=== PATIENT | male | born 1985 | race Caucasian/White ===

== ENCOUNTER 2017-01-08 20:43 | Emergency (ER) | payer BC ==
[2017-01-08] MEDS ORDERED: KETOROLAC 30 MG/ML 1 ML VIAL IVP ONE (22:31)
[2017-01-08 22:53] LABS: Basophils # (A) 0.1 k/uL (0-0.2); Basophils % (A) 1 %; CH 33.7; CHCM 34.8; Eosinophils # (A) 0.3 k/uL (0-0.7); Eosinophils % (A) 5 %; HCT 41.1 % (39.0-53.0); HDW 2.35; HGB 13.7 gm/dL (13.0-17.5); Luc # (Auto) 0.18; Luc % (Auto) 3; Lymphocytes # (A) 2.8 k/uL (1.0-4.8); Lymphocytes % (A) 40 %; MCH 32.5 pg (25.0-35.0); MCHC 33.5 g/dL (31.0-37.0); MCV 97.2 fL (80.0-100.0); Mean Platelet Volume 7.7; Monocytes # (A) 0.4 k/uL (0-1.0); Monocytes % (A) 6 %; Neutrophils # (A) 3.2 k/uL (1.3-7.7); Neutrophils % (A) 46 %; RBC 4.23 m/uL (4.30-5.90); RDW 13.3 % (11.5-15.5); WBC 6.9 k/uL (3.8-10.6); WBC (Perox) 6.78
[2017-01-08 23:04] LABS: ALT 38 U/L (21-72); AST 26 U/L (17-59); Alkaline Phosphatase 62 U/L (38-126); Anion Gap 10 mmol/L; Blood Urea Nitrogen 11 mg/dL (9-20); Calcium 9.3 mg/dL (8.4-10.2); Carbon Dioxide 27 mmol/L (22-30); Chloride 103 mmol/L (98-107); Glucose 86 mg/dL (74-99); Magnesium 2.1 mg/dL (1.6-2.3); Non-African American GFR(MDRD) >60 (>60 ml/min/1.73 sqM); Potassium 3.9 mmol/L (3.5-5.1); Sodium 140 mmol/L (137-145); Total Bilirubin 0.2 mg/dL (0.2-1.3); Total Protein 7.3 g/dL (6.3-8.2)
--- NOTE | 2017-01-08 23:05 | XR ---
EXAM: XR Chest, 2 Views CLINICAL HISTORY: Reason: Chest Pain TECHNIQUE: Frontal and lateral views of the chest. COMPARISON: No relevant prior studies available. FINDINGS: Lungs: Lungs are clear Pleural space: No evidence of pleural effusion or pneumothorax. Heart: Heart size is within normal limits. Mediastinum: Mediastinal structures are unremarkable Bones/joints: Imaged bony thorax is unremarkable. IMPRESSION: No evidence of active chest disease.
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
[2017-01-09 00:10] VITALS: BP 108/70; PULSE 79; RESP 16; TEMP 97.9
== END 2017-01-09 00:09 | disposition home or self-care (01) ==
LOC: EC 20:43
DX: R07.89 Other chest pain (principal); F17.200 Nicotine dependence, unspecified, uncomplicated; Z88.0 Allergy status to penicillin
CPT/HCPCS: 99285; 96374; 36415; 93005; 80053; 83735; 84484; 85025; 71020; J1885

== ENCOUNTER 2018-02-25 07:00 | Inpatient (IN) | payer BC ==
--- NOTE | 2018-02-25 07:36 | ED ---
Psych HPI - General Chief Complaint: Psychiatric Symptoms Stated Complaint: mental health Time Seen by Provider: 02/25/18 07:12 Source: patient, police, RN notes reviewed, old records reviewed Mode of arrival: ambulatory - History of Present Illness Initial Comments: 32-year-old male present to return to the chief complaint of seeing people in his backyard today. He was petitioned by the [employer] . He called multiple times this evening at 3 AM stating that he heard people's backyard. He has video recordings of people however we are not able to see anybody on the video recordings. Patient reports he's never had this happen before. Denies any having history of psychiatric complaints. Patient is petitioned by a [employer] s Department due to seeing hearing things that are not there. Patient denies any other complaints including suicidal or homicidal ideations. - Related Data Home Medications Medication Instructions Recorded Confirmed No Known Home Medications 01/08/17 02/25/18 Allergies Allergy/AdvReac Type Severity Reaction Status Date / Time amoxicillin Allergy Rash/Hives Verified 02/25/18 13:26 Penicillins Allergy Rash/Hives Verified 02/25/18 13:26 Review of Systems ROS Statement: Those systems with pertinent positive or pertinent negative responses have been documented in the HPI. ROS Other: All systems not noted in ROS Statement are negative. Past Medical History Past Medical History: No Reported History History of Any Multi-Drug Resistant Organisms: None Reported Past Surgical History: Orthopedic Surgery Past Psychological History: No Psychological Hx Reported Smoking Status: Current every day smoker Past Alcohol Use History: Rare Past Drug Use History: None Reported General Exam - General Exam Comments Initial Comments: 32-year-old male. Alert and oriented. No significant distress. Limitations: no limitations General appearance: alert, in no apparent distress Head exam: Present: atraumatic, normocephalic, normal inspection Eye exam: Present: normal appearance, PERRL, EOMI. Absent: scleral icterus, conjunctival injection, periorbital swelling ENT exam: Present: normal exam, mucous membranes moist Neck exam: Present: normal inspection. Absent: tenderness, meningismus, lymphadenopathy Respiratory exam: Present: normal lung sounds bilaterally. Absent: respiratory distress, wheezes, rales, rhonchi, stridor Cardiovascular Exam: Present: regular rate, normal rhythm, normal heart sounds. Absent: systolic murmur, diastolic murmur, rubs, gallop, clicks Extremities exam: Present: normal inspection, full ROM, normal capillary refill. Absent: tenderness, pedal edema, joint swelling, calf tenderness Back exam: Present: normal inspection Neurological exam: Present: alert, oriented X3, CN II-XII intact Psychiatric exam: Present: normal mood, other (Delusions that people are after him and his backyard this morning.). Absent: normal affect (Patient is a normal affect. Questionable delusions of having people around his house and after him. The police officers did not see anything or no evidence on his the recordings.) Skin exam: Present: warm, dry, intact, normal color. Absent: rash Course Vital Signs 02/25/18 02/25/18 07:05 13:33 Temperature 97.1 F L 98.8 F Pulse Rate 97 74 Respiratory 18 18 Rate Blood Pressure 141/84 120/66 O2 Sat by Pulse 99 98 Oximetry Medical Decision Making - Medical Decision Making 32-year-old male with no past medical history including psychiatric she presents today with petition from [facility]. The Patient called police to his house multiple times today because people are in his backyard. Patient states that he has of the recording of people in backyard police did not see anyone, and there is no evidence of people on video recordings. I viewed the phone video , and I see No Evidence of Any People or Activity with That His Backyard. Patient at This Time Was Medically Clear for EPS Evaluation. Patient was advised by EPS 19th of the Patient should be admitted for these delusions of people backyard. Apparently patient's girlfriend was contacted and agreed that he was seeing and hearing things that were not there. Patient is willing to sign into the psychiatric facility on his own will. Disposition Clinical Impression: Delusion Disposition: ADMITTED IP TO THIS [facility] Condition: Stable Is patient prescribed a controlled substance at d/c from ED?: No Time of Disposition: 13:39
[2018-02-25] MEDS ORDERED: ZIPRASIDONE 20 MG VIAL IM PRN (13:22)
[2018-02-25] MEDS ORDERED: LORazepam 1 MG TAB PO PRN (13:22)
[2018-02-25] MEDS ORDERED: MAG HYDROX/AL HYDROX/SIMETH 30 ML CUP PO PRN (13:22)
[2018-02-25] MEDS ORDERED: MAGNESIUM HYDROXIDE 2,400 MG/10 ML CUP PO PRN (13:22)
[2018-02-25] MEDS ORDERED: ACETAMINOPHEN TAB 325 MG TAB PO PRN (13:22)
[2018-02-25] MEDS ORDERED: LORazepam 2 MG/ML INJ IM PRN (13:25)
--- NOTE | 2018-02-25 16:20 | P.CONS ---
History of Present Illness - Reason for Consult Medical clearance - History of Present Illness 32-year-old gentleman was admitted secondary to hallucinations. Patient denied any symptoms at this point of the patient denied dysuria nausea vomiting abdominal pain cough runny nose patient does smoke. Denied any suicidal or homicidal ideations. Review of Systems REVIEW OF SYSTEMS: CONSTITUTIONAL: No fever, no malaise, no fatigue. HEENT: No recent visual problems or hearing problems. Denied any sore throat. CARDIOVASCULAR: No chest pain, orthopnea, PND, no palpitations, no syncope. PULMONARY: No shortness of breath, no cough, no hemoptysis. GASTROINTESTINAL: No diarrhea, no nausea, no vomiting, no abdominal pain. Normoactive bowel sounds. NEUROLOGICAL: No headaches, no weakness, no numbness. HEMATOLOGICAL: Denies any bleeding or petechiae. GENITOURINARY: Denies any burning micturition, frequency, or urgency. MUSCULOSKELETAL/RHEUMATOLOGICAL: Denies any joint pain, swelling, or any muscle pain. ENDOCRINE: Denies any polyuria or polydipsia. The rest of the 14-point review of systems is negative. Past Medical History Past Medical History: No Reported History History of Any Multi-Drug Resistant Organisms: None Reported Past Surgical History: Orthopedic Surgery Additional Past Surgical History / Comment(s): R 5th digit Past Psychological History: No Psychological Hx Reported Smoking Status: Current every day smoker Past Alcohol Use History: Rare Additional Past Alcohol Use History / Comment(s): 1 drink every few months, sometimes none for 8 months Past Drug Use History: None Reported Medications and Allergies Home Medications Medication Instructions Recorded Confirmed Type No Known Home Medications 01/08/17 02/25/18 History Allergies Allergy/AdvReac Type Severity Reaction Status Date / Time amoxicillin Allergy Rash/Hives Verified 02/25/18 15:27 Penicillins Allergy Rash/Hives Verified 02/25/18 15:27 Physical Exam Vitals: Vital Signs Temp Pulse Pulse Resp BP BP Pulse Ox 02/25/18 14:52 97.4 F L 82 16 133/81 02/25/18 13:33 98.8 F 74 18 120/66 98 02/25/18 07:05 97.1 F L 97 18 141/84 99 Intake and Output 02/25/18 02/25/18 02/25/18 06:59 14:59 22:59 Other: Weight 74.843 kg PHYSICAL EXAMINATION: GENERAL: The patient is alert and oriented x3, not in any acute distress. Well developed, well nourished. HEENT: Pupils are round and equally reacting to light. EOMI. No scleral icterus. No conjunctival pallor. Normocephalic, atraumatic. No pharyngeal erythema. No thyromegaly. CARDIOVASCULAR: S1 and S2 present. No murmurs, rubs, or gallops. PULMONARY: Chest is clear to auscultation, no wheezing or crackles. ABDOMEN: Soft, nontender, nondistended, normoactive bowel sounds. No palpable organomegaly. MUSCULOSKELETAL: No joint swelling or deformity. EXTREMITIES: No cyanosis, clubbing, or pedal edema. NEUROLOGICAL: Gross neurological examination did not reveal any focal deficits. SKIN: No rashes. Assessment and Plan Plan: -Hallucinations: Possible schizophrenia management as per primary service -Nicotine abuse: Counseling was provided -Occasional marijuana use
[2018-02-26 09:10] VITALS: BMI 22.4
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
[2018-02-26 11:38] LABS: Basophils # (A) 0.1 k/uL (0-0.2); Basophils % (A) 2 %; Eosinophils # (A) 0.2 k/uL (0-0.7); Eosinophils % (A) 4 %; HCT 43.9 % (39.0-53.0); HGB 14.7 gm/dL (13.0-17.5); Lymphocytes # (A) 1.4 k/uL (1.0-4.8); Lymphocytes % (A) 29 %; MCH 31.2 pg (25.0-35.0); MCHC 33.4 g/dL (31.0-37.0); MCV 93.3 fL (80.0-100.0); Mean Platelet Volume 7.5; Monocytes # (A) 0.4 k/uL (0-1.0); Monocytes % (A) 8 %; Neutrophils # (A) 2.6 k/uL (1.3-7.7); Neutrophils % (A) 55 %; Platelet Count 217 k/uL (150-450); WBC 4.7 k/uL (3.8-10.6)
[2018-02-26 11:44] LABS: ALT 17 U/L (21-72); AST 26 U/L (17-59); Albumin 4.7 g/dL (3.5-5.0); Alkaline Phosphatase 35 U/L (38-126); Anion Gap 11 mmol/L; Blood Urea Nitrogen 12 mg/dL (9-20); Calcium 10.2 mg/dL (8.4-10.2); Carbon Dioxide 30 mmol/L (22-30); Chloride 103 mmol/L (98-107); Cholesterol 191 mg/dL (<200); Glucose 81 mg/dL (74-99); HDL Cholesterol 50 mg/dL (40-60); LDL Cholesterol,Calculated 130 mg/dL (0-99); Potassium 4.3 mmol/L (3.5-5.1); Sodium 144 mmol/L (137-145); Total Bilirubin 0.9 mg/dL (0.2-1.3); Total Protein 7.8 g/dL (6.3-8.2); Triglycerides 55 mg/dL (<150)
[2018-02-26 15:13] LABS: Appearance,Urine Clear (Clear); Bacteria,Urine Rare /hpf; Bilirubin,Urine Negative (Negative); Blood,Urine Small (Negative); Color,Urine Yellow; Glucose,Urine (UA) Negative (Negative); Ketones,Urine Negative (Negative); Leukocyte Esterase,Urine Negative (Negative); Mucus,Urine Few /hpf; Nitrite,Urine Negative (Negative); Protein,Urine Trace (Negative); RBC,Urine 25 /hpf (0-5); Specific Gravity,Urine 1.022 (1.001-1.035); WBC,Urine 2 /hpf (0-5)
[2018-02-26 18:15] LABS: Amphetamine Screen,Urine Not Detected (NotDetected); Barbiturate Screen,Urine Not Detected (NotDetected); Benzodiazepines Screen,Urine Not Detected (NotDetected); Cocaine Screen,Urine Not Detected (NotDetected); Methadone Screen, Urine Not Detected (NotDetected); Opiate Screen,Urine Not Detected (NotDetected); Oxycodone Screen, Urine Not Detected (NotDetected); Phencyclidine Screen,Urine Not Detected (NotDetected); Tricyclic Antidepressant,Urine Not Detected (NotDetected); Urn Cannabinoid Scrn Detected (NotDetected)
[2018-02-26 19:21] LABS: Hemoglobin A1C 4.9 % (4.0-6.0)
--- NOTE | 2018-02-27 15:34 | P.PN ---
Subjective Progress Note Date: 02/27/18 Principal diagnosis: MDD with anxiety 32-year-old male present to return to the chief complaint of seeing people in his backyard today. He was petitioned by the [employer] . He called multiple times this evening at 3 AM stating that he heard people's backyard. He has video recordings of people however we are not able to see anybody on the video recordings. Patient reports he's never had this happen before. Denies any having history of psychiatric complaints. Patient is petitioned by a [employer] s Department due to seeing hearing things that are not there. Patient denies any other complaints including suicidal or homicidal ideation. 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 Mental Status Examination - General Appearance: [well groomed,casual] Speech/Language: [spontaneous, rapid] Attitude/Behavior: [cooperative] Mood: [euthymic] Affect: [full range, lively] Orientation: [time, person, place situation] Thought Content: [wnl] Risk Factors: [denies suicidal (ideations, plan), and/or Homicidal (ideations, plan), other] Perception: [wnl] Thought Processes: [goal-oriented] Concentration/Attention Span: [wnl] [Per observation and interview with the patient] Recent Memory: [wnl] [3 out of 3 in 3 minutes] Remote Memory: [wnl] [past events, as related history] Intelligence: [average] [based on history, based on vocabulary, syntax, grammar , and content] Judgement: [fair] [per patient's behavior/history of present illness] Insight: [fair] [understanding severity of illness/history of present illness] Justification for Inpatient Hospitalization - [Hallucinations, delusions, resulting in significant loss of functioning.] [Emotional or behavioral conditions and complications requiring 24 hour medical and nursing care.] [Need for special drug therapy, or other therapeutic program requiring continuous hospitalization.] [Failure of social functioning.] Plan:Justification for Inpatient Hospitalization - [Hallucinations, delusions, resulting in significant loss of functioning.] [Emotional or behavioral conditions and complications requiring 24 hour medical and nursing care.] [Need for special drug therapy, or other therapeutic program requiring continuous hospitalization.] [Failure of social functioning.] Start: Zoloft 25 mg po qhs Re-evaluate daily for stabilization Estmated length of stay 2 additional days Objective - Vital Signs Vital signs: Vital Signs Temp 97.6 F 02/27/18 06:51 Pulse 65 02/27/18 06:51 Resp 16 02/27/18 06:51 BP 110/59 02/27/18 06:51 Pulse Ox 98 02/25/18 13:33 Intake & Output 02/26/18 02/27/18 02/27/18 18:59 06:59 18:59 Weight 74.843 kg - Labs CBC & Chem 7: 02/26/18 10:34 02/26/18 10:34 Labs: Abnormal Lab Results - Last 24 Hours (Table) 02/26/18 02/26/18 Range/Units 14:49 14:51 Urine Protein Trace H (Negative) Urine Blood Small H (Negative) Urine RBC 25 H (0-5) /hpf Urine Bacteria Rare H (None) /hpf Urine Mucus Few H (None) /hpf U Marijuana (THC) Screen Detected H (NotDetected) Assessment and Plan Plan: Justification for Inpatient Hospitalization - [Hallucinations, delusions, resulting in significant loss of functioning.] [Emotional or behavioral conditions and complications requiring 24 hour medical and nursing care.] [Need for special drug therapy, or other therapeutic program requiring continuous hospitalization.] [Failure of social functioning.]
[2018-02-27] MEDS: SERTRALINE 25 MG TAB PO SCH (19:57)
[2018-02-28] MEDS: SERTRALINE 25 MG TAB PO SCH ×2 (09:34→20:05)
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
[2018-03-01 06:30] VITALS: RESP 14
--- NOTE | 2018-03-01 08:36 | P.PN ---
Subjective Progress Note Date: 03/01/18 Principal diagnosis: MDD with anxiety 32-year-old male present to return to the chief complaint of seeing people in his backyard today. He was petitioned by the [employer] . He called multiple times this evening at 3 AM stating that he heard people's backyard. He has video recordings of people however we are not able to see anybody on the video recordings. Patient reports he's never had this happen before. Denies any having history of psychiatric complaints. Patient is petitioned by a [employer] s Department due to seeing hearing things that are not there. Patient denies any other complaints including suicidal or homicidal ideation. 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 Mental Status Examination - General Appearance: [well groomed,casual] Speech/Language: [spontaneous, rapid] Attitude/Behavior: [cooperative] Mood: [euthymic] Affect: [full range, lively] Orientation: [time, person, place situation] Thought Content: [wnl] Risk Factors: [denies suicidal (ideations, plan), and/or Homicidal (ideations, plan), other] Perception: [wnl] Thought Processes: [goal-oriented] Concentration/Attention Span: [wnl] [Per observation and interview with the patient] Recent Memory: [wnl] [3 out of 3 in 3 minutes] Remote Memory: [wnl] [past events, as related history] Intelligence: [average] [based on history, based on vocabulary, syntax, grammar , and content] Judgement: [fair] [per patient's behavior/history of present illness] Insight: [fair] [understanding severity of illness/history of present illness] Justification for Inpatient Hospitalization - [Hallucinations, delusions, resulting in significant loss of functioning.] [Emotional or behavioral conditions and complications requiring 24 hour medical and nursing care.] [Need for special drug therapy, or other therapeutic program requiring continuous hospitalization.] [Failure of social functioning.] Plan:Justification for Inpatient Hospitalization - [Hallucinations, delusions, resulting in significant loss of functioning.] [Emotional or behavioral conditions and complications requiring 24 hour medical and nursing care.] [Need for special drug therapy, or other therapeutic program requiring continuous hospitalization.] [Failure of social functioning.] Start: Zoloft 37.5 mg po qhs Re-evaluate daily for stabilization Estmated length of stay 2 additional days Objective - Vital Signs Vital signs: Vital Signs Temp 97.9 F 03/01/18 06:02 Pulse 50 L 03/01/18 06:02 Resp 14 03/01/18 06:02 BP 90/54 03/01/18 06:02 Pulse Ox 98 02/25/18 13:33 - Labs CBC & Chem 7: 02/26/18 10:34 02/26/18 10:34
[2018-03-01] MEDS: SERTRALINE 25 MG TAB PO SCH (09:07)
[2018-03-01 19:41] LABS: Amphetamine Screen,Urine Detected (NotDetected); Barbiturate Screen,Urine Not Detected (NotDetected); Benzodiazepines Screen,Urine Not Detected (NotDetected); Cocaine Screen,Urine Not Detected (NotDetected); Methadone Screen, Urine Not Detected (NotDetected); Opiate Screen,Urine Not Detected (NotDetected); Oxycodone Screen, Urine Not Detected (NotDetected); Phencyclidine Screen,Urine Not Detected (NotDetected); Tricyclic Antidepressant,Urine Not Detected (NotDetected); Urn Cannabinoid Scrn Not Detected (NotDetected)
[2018-03-01] MEDS ORDERED: SERTRALINE 25 MG TAB PO SCH (20:00)
[2018-03-01] MEDS ORDERED: SERTRALINE 50 MG TAB PO SCH (21:00)
[2018-03-02 06:26] VITALS: BP 126/63; PULSE 70; TEMP 97.7
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
== END 2018-03-02 11:17 | disposition home or self-care (01) | DRG 885 ==
LOC: EC 07:00 → 3MHU 13:20
PROVIDERS: ADMIT Psychiatry & Neurology Psychiatry; ATTEND Psychiatry & Neurology Psychiatry
DX: F32.3 Major depressive disorder, single episode, severe with psychotic features (principal); F41.9 Anxiety disorder, unspecified; F17.210 Nicotine dependence, cigarettes, uncomplicated; Z88.0 Allergy status to penicillin; Z71.6 Tobacco abuse counseling
CPT/HCPCS: 80053; 80061; 80306; 81001; 82075; 83036; 84443; 85025; 99285

== ENCOUNTER 2021-01-23 17:55 | Emergency (ER) | payer BC ==
[2021-01-23 19:46] LABS: ALT 13 U/L (4-49); AST 25 U/L (17-59); African American GFR (CKD) >90 (>60 ml/min/1.73 sqM); Alkaline Phosphatase 44 U/L (38-126); Amylase 58 U/L (30-110); Anion Gap 10 mmol/L; Blood Urea Nitrogen 9 mg/dL (9-20); Carbon Dioxide 26 mmol/L (22-30); Chloride 104 mmol/L (98-107); Glucose 108 mg/dL (74-99); Lipase 26 U/L (23-300); Non-African American GFR(CKD) >90 (>60 ml/min/1.73 sqM); Potassium 4.4 mmol/L (3.5-5.1); Sodium 140 mmol/L (137-145); Total Bilirubin 0.4 mg/dL (0.2-1.3); Total Protein 7.4 g/dL (6.3-8.2)
--- NOTE | 2021-01-23 21:15 | ED ---
Abdominal Pain HPI - General Chief Complaint: Abdominal Pain Stated Complaint: side pain Time Seen by Provider: 01/23/21 20:46 Source: patient, RN notes reviewed Mode of arrival: ambulatory Limitations: no limitations - History of Present Illness Initial Comments: This a 35-year-old male presents emergency Department chief complaint of right flank pain. Patient states started earlier today after having a bowel movement but states that did not feel it was related. Patient states she had pain all way from his lower rib pain down into her lower abdomen. Patient came very nauseated, lightheaded from the pain. No chest pain or shortness of breath no dysuria no hematuria no constipation no diarrhea no other complaints. - Related Data Previous Rx's Medication Instructions Recorded Sertraline [Zoloft] 50 mg PO HS 30 Days #30 tab 03/02/18 Allergies Allergy/AdvReac Type Severity Reaction Status Date / Time amoxicillin Allergy Rash/Hives Verified 01/23/21 19:13 Penicillins Allergy Rash/Hives Verified 01/23/21 19:13 Review of Systems ROS Statement: Those systems with pertinent positive or pertinent negative responses have been documented in the HPI. ROS Other: All systems not noted in ROS Statement are negative. Past Medical History Past Medical History: No Reported History History of Any Multi-Drug Resistant Organisms: None Reported Past Surgical History: Orthopedic Surgery Additional Past Surgical History / Comment(s): R 5th digit Past Psychological History: No Psychological Hx Reported Smoking Status: Current every day smoker Past Alcohol Use History: Rare Past Drug Use History: Marijuana General Exam Limitations: no limitations General appearance: alert, in no apparent distress Head exam: Present: atraumatic, normocephalic, normal inspection Neck exam: Present: normal inspection, full ROM. Absent: tenderness, meningismus, lymphadenopathy Respiratory exam: Present: normal lung sounds bilaterally. Absent: respiratory distress, wheezes, rales, rhonchi, stridor Cardiovascular Exam: Present: regular rate, normal rhythm, normal heart sounds. Absent: systolic murmur, diastolic murmur, rubs, gallop, clicks GI/Abdominal exam: Present: soft, tenderness (Right lower quadrant), normal bowel sounds. Absent: distended, guarding, rebound, rigid Back exam: Present: CVA tenderness (R). Absent: CVA tenderness (L) Neurological exam: Present: alert, oriented X3, CN II-XII intact Course Vital Signs 01/23/21 01/23/21 19:09 21:35 Temperature 98 F Pulse Rate 80 71 Respiratory 18 20 Rate Blood Pressure 115/73 121/82 O2 Sat by Pulse 98 100 Oximetry Medical Decision Making - Medical Decision Making 35-year-old presented flank pain. Patient's pain initially resolved prior arrival patient's urine shows hematuria most likely passed kidney stone. - Lab Data Result diagrams: 01/23/21 21:29 01/23/21 19:26 Lab Results 01/23/21 01/23/21 01/23/21 Range/Units 19:26 21:29 21:29 WBC 12.7 H (3.8-10.6) k/uL RBC 4.53 (4.30-5.90) m/uL Hgb 14.6 (13.0-17.5) gm/dL Hct 43.5 (39.0-53.0) % MCV 96.1 (80.0-100.0) fL MCH 32.3 (25.0-35.0) pg MCHC 33.6 (31.0-37.0) g/dL RDW 13.4 (11.5-15.5) % Plt Count 245 (150-450) k/uL MPV 7.8 Neutrophils % 82 % Lymphocytes % 12 % Monocytes % 4 % Eosinophils % 1 % Basophils % 1 % Neutrophils # 10.4 H (1.3-7.7) k/uL Lymphocytes # 1.5 (1.0-4.8) k/uL Monocytes # 0.5 (0-1.0) k/uL Eosinophils # 0.1 (0-0.7) k/uL Basophils # 0.1 (0-0.2) k/uL Sodium 140 (137-145) mmol/L Potassium 4.4 (3.5-5.1) mmol/L Chloride 104 (98-107) mmol/L Carbon Dioxide 26 (22-30) mmol/L Anion Gap 10 mmol/L BUN 9 (9-20) mg/dL Creatinine 0.91 (0.66-1.25) mg/dL Est GFR (CKD-EPI)AfAm >90 (>60 ml/min/1.73 sqM) Est GFR (CKD-EPI)NonAf >90 (>60 ml/min/1.73 sqM) Glucose 108 H (74-99) mg/dL Calcium 10.0 (8.4-10.2) mg/dL Total Bilirubin 0.4 (0.2-1.3) mg/dL AST 25 (17-59) U/L ALT 13 (4-49) U/L Alkaline Phosphatase 44 (38-126) U/L Total Protein 7.4 (6.3-8.2) g/dL Albumin 5.0 (3.5-5.0) g/dL Amylase 58 (30-110) U/L Lipase 26 (23-300) U/L Urine Color Yellow Urine Appearance Cloudy (Clear) Urine pH 6.0 (5.0-8.0) Ur Specific [place] 1.024 (1.001-1.035) Urine Protein 1+ H (Negative) Urine Glucose (UA) Negative (Negative) Urine Ketones 2+ H (Negative) Urine Blood Large H (Negative) Urine Nitrite Negative (Negative) Urine Bilirubin Negative (Negative) Urine Urobilinogen 3.0 (<2.0) mg/dL Ur Leukocyte Esterase Trace H (Negative) Urine RBC 159 H (0-5) /hpf Urine WBC 15 H (0-5) /hpf Hyaline Casts 9 H (0-2) /lpf Urine Mucus Many H (None) /hpf Disposition Clinical Impression: Kidney stone Disposition: HOME SELF-CARE Condition: Stable Instructions (If sedation given, give patient instructions): Kidney Stones (ED) Additional Instructions: Please return to the Emergency Department if symptoms worsen or any other concerns. Is patient prescribed a controlled substance at d/c from ED?: No Referrals: La Nena Giordano MD [Primary Care Provider] - 1-2 days Time of Disposition: 23:20
[2021-01-23 21:37] LABS: Basophils # (A) 0.1 k/uL (0-0.2); Basophils % (A) 1 %; Eosinophils # (A) 0.1 k/uL (0-0.7); Eosinophils % (A) 1 %; HCT 43.5 % (39.0-53.0); HGB 14.6 gm/dL (13.0-17.5); Lymphocytes # (A) 1.5 k/uL (1.0-4.8); Lymphocytes % (A) 12 %; MCH 32.3 pg (25.0-35.0); MCHC 33.6 g/dL (31.0-37.0); MCV 96.1 fL (80.0-100.0); Mean Platelet Volume 7.8; Monocytes # (A) 0.5 k/uL (0-1.0); Monocytes % (A) 4 %; Neutrophils # (A) 10.4 k/uL (1.3-7.7); Neutrophils % (A) 82 %; Platelet Count 245 k/uL (150-450); RBC 4.53 m/uL (4.30-5.90); RDW 13.4 % (11.5-15.5); WBC 12.7 k/uL (3.8-10.6)
[2021-01-23 21:38] VITALS: RESP 20
--- NOTE | 2021-01-23 22:02 | CT ---
EXAMINATION TYPE: CT abdomen pelvis wo con DATE OF EXAM: 01/23/2021 COMPARISON: 10/21/2012 HISTORY: right flank pain CT DLP: 397 mGycm Automated exposure control for dose reduction was used. lung bases are clear. There is no pleural effusion. Heart size is normal. Liver spleen stomach pancre as gallbladder appear normal. The bile ducts are not dilated. There is no adrenal mass. Kidneys have normal size. There is no hydronephrosis. There is 3 mm calculu s in the lower pole left kidney. Ureters are not dilated. There is no retroperitoneal adenopathy. Ignacio endix is posterior and appears normal. Bladder distends smoothly. There is no inguinal hernia. There is no mesenteric edema. There is no ascites or free air. There is no bowel obstruction. The lumbar vertebra have normal spacing and alignment. Posterior elements are intact. There is no com pression fracture. Bony pelvis is intact. The hip joints are intact. IMPRESSION: Nonobstructing left renal calculus. Normal appendix. No sign of acute abdomen and pelvis.
[2021-01-23 23:16] LABS: Appearance,Urine Cloudy (Clear); Bilirubin,Urine Negative (Negative); Blood,Urine Large (Negative); Color,Urine Yellow; Glucose,Urine (UA) Negative (Negative); Hyaline Casts,Urine 9 /lpf (0-2); Ketones,Urine 2+ (Negative); Leukocyte Esterase,Urine Trace (Negative); Mucus,Urine Many /hpf; Nitrite,Urine Negative (Negative); Protein,Urine 1+ (Negative); RBC,Urine 159 /hpf (0-5); Specific Gravity,Urine 1.024 (1.001-1.035); WBC,Urine 15 /hpf (0-5)
[2021-01-23 23:55] VITALS: BP 108/74; PULSE 57; TEMP 97.4
== END 2021-01-23 23:55 | disposition home or self-care (01) ==
LOC: EC 17:55
DX: N20.0 Calculus of kidney (principal); F17.200 Nicotine dependence, unspecified, uncomplicated; F12.90 Cannabis use, unspecified, uncomplicated; Z79.899 Other long term (current) drug therapy; Z88.0 Allergy status to penicillin
CPT/HCPCS: 36415; 74176; 80053; 81001; 82150; 83690; 85025; 99284

== ENCOUNTER → 2022-02-13 | Outpatient (CLI) | payer BC ==
[2022-02-13 18:48] LABS: ALT 21 U/L (10-49); AST 25 U/L (14-35); African American GFR (CKD) 128.6 (60.0-200.0); Albumin 4.7 g/dL (3.8-4.9); Albumin/Globulin Ratio 1.88 (1.60-3.17); Alkaline Phosphatase 48 U/L (41-126); BUN/Creat Ratio 7.52 Ratio (12.00-20.00); Blood Urea Nitrogen 6.7 mg/dL (9.0-27.0); Carbon Dioxide 26.1 mmol/L (20.0-27.5); Chloride 97 mmol/L (96-109); Chol/HDL Ratio 4.43 Ratio; Globulin 2.5 g/dL (1.6-3.3); Glucose 85 mg/dL (70-110); Non-African American GFR(CKD) 110.9 (60.0-200.0); Potassium 3.9 mmol/L (3.5-5.5); Sodium 135 mmol/L (135-145); Total Bilirubin <0.15 mg/dL (0.30-1.20); Total Protein 7.2 g/dL (6.2-8.2); VLDL Calculation 12.96 mg/dL (5.00-40.00)
== END | disposition home or self-care (01) ==
LOC: LABWHC1 11:23
PROVIDERS: ATTEND Internal Medicine
DX: Z00.00 Encounter for general adult medical examination without abnormal findings (principal); R10.84 Generalized abdominal pain
CPT/HCPCS: 36415; 80053; 80061

== ENCOUNTER 2024-01-28 13:54 | Emergency (ER) | payer BC ==
[2024-01-28 14:07] VITALS: RESP 18
--- NOTE | 2024-01-28 14:55 | ED ---
Abdominal Pain HPI - General Source: patient, RN notes reviewed Mode of arrival: ambulatory Limitations: no limitations <Danny Espinoza - Last Filed: 01/28/24 14:53> <Bulmaro Williamson - Last Filed: 01/28/24 15:58> - General Chief Complaint: Abdominal Pain Stated Complaint: Left flank pain, NICO Time Seen by Provider: 01/28/24 14:12 - History of Present Illness Initial Comments: Quick [id number] male presents emergency department with chief complaint of flank pain. Patient states he has a history of kidney stones. Patient states he is very nauseated states pain is uncontrolled nothing makes pain feel better. (Danny Espinoza) This is a 38-year-old male who presents to the emergency department complaining of left-sided flank pain. Patient states he had a kidney stone a few years ago. Patient states the pain radiates around to the left lower quadrant. Patient denies any testicular pain. Patient denies any dysuria hematuria or urinary frequency. Patient states since he has been in the emergency department he is pain is subsided and he has no pain. Patient states that started this morning when he woke up. Patient denies any vomiting but states he was very nauseous. Patient Nuys any diarrhea. Patient denies any fevers or chills. Patient has any chest pain or difficulty breathing. Patient has any symptoms currently (Bulmaro Williamson) - Related Data Previous Rx's Medication Instructions Recorded Sertraline [Zoloft] 50 mg PO HS 30 Days #30 tab 03/02/18 Ketorolac [Toradol] 10 mg PO Q8HR #15 tab 01/28/24 Allergies Allergy/AdvReac Type Severity Reaction Status Date / Time amoxicillin Allergy Rash/Hives Verified 01/28/24 14:06 Penicillins Allergy Rash/Hives Verified 01/28/24 14:06 Review of Systems ROS Other: All systems not noted in ROS Statement are negative. <Danny Espinoza - Last Filed: 01/28/24 14:53> ROS Other: All systems not noted in ROS Statement are negative. <Bulmaro Williamson - Last Filed: 01/28/24 15:58> ROS Statement: Those systems with pertinent positive or pertinent negative responses have been documented in the HPI. Past Medical History Past Medical History: No Reported History History of Any Multi-Drug Resistant Organisms: None Reported Past Surgical History: Orthopedic Surgery Additional Past Surgical History / Comment(s): R 5th digit Past Psychological History: No Psychological Hx Reported Smoking Status: Current every day smoker Past Alcohol Use History: Rare Past Drug Use History: Marijuana <AlexisDanny Zoe - Last Filed: 01/28/24 14:53> General Exam Limitations: no limitations <AlexisDanny - Last Filed: 01/28/24 14:53> <Bulmaro Williamson - Last Filed: 01/28/24 15:58> - General Exam Comments Initial Comments: Visual Physical Exam Vital signs reviewed General: Well-appearing, nontoxic, no acute distress. Head: Normocephalic, atraumatic Eyes: PERRLA, EOMI ENT: Airway patent Chest: Nonlabored breathing Skin: No visual rash, normal skin tone Neuro: Alert and oriented 3 Musculoskeletal: No gross abnormalities (AlexisDanny Enriquez) GENERAL: Patient is well-developed and well-nourished. Patient is nontoxic and well-hyd rated and is in no acute distress. ENT: Neck is soft and supple. No significant lymphadenopathy is noted. Oropharynx is clear. Moist mucous membranes. Neck has full range of motion without elicit ing any pain. EYES: The sclera were anicteric and conjunctiva were pink and moist. Extraocular movements were intact and pupils were equal round and reactive to light. Eyelids were unremarkable. PULMONARY: Unlabored respirations. Good breath sounds bilaterally. No audible rales rhonchi or wheezing was noted. CARDIOVASCULAR: There is a regular rate and rhythm without any murmurs gallops or rubs. ABDOMEN: Soft and nontender with normal bowel sounds. SKIN: Skin is clear with no lesions or rashes and otherwise unremarkable. NEUROLOGIC: Patient is alert and oriented x3. Cranial nerves II through XII are grossly intact. Motor and sensory are also intact. Normal speech, volume and content. Symmetrical smile. MUSCULOSKELETAL: Normal extremities with adequate strength and full range of motion. LYMPHATICS: No significant lymphadenopathy is noted PSYCHIATRIC: Normal psychiatric evaluation. (Bulmrao Williamson) Course Vital Signs 01/28/24 14:04 Temperature 97.5 F L Pulse Rate 96 Respiratory 18 Rate Blood Pressure 124/86 O2 Sat by Pulse 98 Oximetry Medical Decision Making <AlexisDanny Zoe - Last Filed: 01/28/24 14:53> <Bulmaro Williamson - Last Filed: 01/28/24 15:58> - Medical Decision Making I completed the quick note portion of this chart signed Danny Espinoza PA-C (Danny Espinoza) Was pt. sent in by a medical professional or institution ([facility], OTOLOGIST, urgent care, hospital, or jail...) When possible be specific @ -No Did you speak to anyone other than the patient for history (EMS, parent, family, police, friend...)? What history was obtained from this source @ -No Did you review nursing and triage notes (agree or disagree)? Why? @ -I reviewed and agree with nursing and triage notes Were old charts reviewed (outside hosp., previous admission, EMS record, old EKG , old radiological studies, urgent care reports/EKG's, jail records)? Report findings @ -No old charts were reviewed Differential Diagnosis? @ -Differential Abdominal Pain Men: Appendicitis, cholecystitis, diverticulosis, ischemic bowel, pancreatitis, hepatitis, UTI, gastroenteritis, AAA, incarcerated hernia, bowel obstruction, constipation, inflammatory bowel, hepatitis, peptic ulcer disease, splenic infarction, perforated viscus, testicular torsion, this is not meant to be an all-inclusive list EKG interpreted by me (3pts min.). @ -As above X-rays interpreted by me (1pt min.). @ -KUB shows no acute abnormality CT interpreted by me (1pt min.). @ -None done U/S interpreted by me (1pt. min.). @ -None done What testing was considered but not performed or refused? (CT, X-rays, U/S, labs)? Why? @ -None What meds were considered but not given or refused? Why? @ -None Did you discuss the management of the patient with other professionals (professionals i.e. , [facility], OTOLOGIST, lab, RT, psych nurse, social scientist, business editor, teacher, account officer, immigration case manager)? Give summary @ -No Was smoking cessation discussed for >3mins.? @ -No Was critical care preformed (if so, how long)? @ -No Were there social determinants of health that impacted care today? How? (Homelessness, low income, unemployed, alcoholism, drug addiction, transportation, low edu. Level, literacy, decrease access to med. care, long term, rehab)? @ -No Was there de-escalation of care discussed even if they declined (Discuss DNR or withdrawal of care, Hospice)? DNR status @ -No What co-morbidities impacted this encounter? (DM, HTN, Smoking, COPD, CAD, Cancer, CVA, ARF, Chemo, Hep., AIDS, mental health diagnosis, sleep apnea, morbid obesity)? @ -None Was patient admitted / discharged? Hospital course, mention meds given and route, prescriptions, significant lab abnormalities, going to OR and other pertinent info. @ -Patient was not experiencing any pain while in the emergency department. Patient had significant hematuria on the urinalysis and since the patient was not having any pain currently patient will be instructed to follow-up with urology because the last time was here he also had hematuria with a stone in the kidney but it was not traveling at that time and he has not followed up at this point. Undiagnosed new problem with uncertain prognosis? @ -No Drug Therapy requiring intensive monitoring for toxicity (Heparin, Nitro, Insulin, Cardizem)? @ -No Were any procedures done? @ -No Diagnosis/symptom? @ -Hematuria Acute, or Chronic, or Acute on Chronic? @ -Acute Uncomplicated (without systemic symptoms) or Complicated (systemic symptoms)? @ -Complicated Side effects of treatment? @ -No Exacerbation, Progression, or Severe Exacerbation? @ -No Poses a threat to life or bodily function? How? (Chest pain, [place], SD, pneumonia, PE, COPD, DKA, ARF, appy, cholecystitis, CVA, Diverticulitis, Homicidal, Suicidal, threat to staff... and all critical care pts) @ -No Diagnosis/symptom? @ -Flank pain Acute, or Chronic, or Acute on Chronic? @ -Default Uncomplicated (without systemic symptoms) or Complicated (systemic symptoms)? @ -Acute complicated Side effects of treatment? @ -None Exacerbation, Progression, or Severe Exacerbation] @ -No Poses a threat to life or bodily function? @ -No (Bulmaro Williamson) - Lab Data Lab Results 01/28/24 Range/Units 14:56 Urine Color Yellow Urine Appearance Turbid (Clear) Urine pH 8.5 H (5.0-8.0) Ur Specific [place] 1.027 (1.001-1.035) Urine Protein 1+ H (Negative) Urine Glucose (UA) Negative (Negative) Urine Ketones 1+ H (Negative) Urine Blood Small H (Negative) Urine Nitrite Negative (Negative) Urine Bilirubin Negative (Negative) Urine Urobilinogen 2.0 (<2.0) mg/dL Ur Leukocyte Esterase Negative (Negative) Urine RBC 120 H (0-5) /hpf Urine WBC 13 H (0-5) /hpf Amorphous Sediment Moderate H (None) /hpf Urine Bacteria Rare H (None) /hpf Disposition <Danny Espinoza - Last Filed: 01/28/24 14:53> Is patient prescribed a controlled substance at d/c from ED?: No Time of Disposition: 15:57 <Bulmaro Williamson - Last Filed: 01/28/24 15:58> Clinical Impression: Flank pain, Hematuria Disposition: HOME SELF-CARE Condition: Good Instructions (If sedation given, give patient instructions): Hematuria (ED) Additional Instructions: Patient should follow-up with urology for the hematuria. Patient should take Toradol as needed for pain Prescriptions: Ketorolac [Toradol] 10 mg PO Q8HR #15 tab Referrals: Jourdan Feliz MD [STAFF PHYSICIAN] - 1-2 days
[2024-01-28 15:12] LABS: Amorphous Sediment,Urine Moderate /hpf; Appearance,Urine Turbid (Clear); Bacteria,Urine Rare /hpf; Bilirubin,Urine Negative (Negative); Blood,Urine Small (Negative); Color,Urine Yellow; Glucose,Urine (UA) Negative (Negative); Ketones,Urine 1+ (Negative); Leukocyte Esterase,Urine Negative (Negative); Nitrite,Urine Negative (Negative); PH, Urine 8.5 (5.0-8.0); Protein,Urine 1+ (Negative); RBC,Urine 120 /hpf (0-5); Specific Gravity,Urine 1.027 (1.001-1.035); WBC,Urine 13 /hpf (0-5)
[2024-01-28 15:50] LABS: Basophils % (A) 0 %; Eosinophils # (A) 0.1 k/uL (0-0.7); Eosinophils % (A) 1 %; HCT 43.4 % (39.0-53.0); HGB 14.4 gm/dL (13.0-17.5); Lymphocytes % (A) 9 %; MCH 31.9 pg (25.0-35.0); MCHC 33.3 g/dL (31.0-37.0); MCV 95.9 fL (80.0-100.0); Mean Platelet Volume 7.9; Monocytes # (A) 0.4 k/uL (0-1.0); Monocytes % (A) 3 %; Neutrophils # (A) 9.9 k/uL (1.3-7.7); Neutrophils % (A) 86 %; Platelet Count 257 k/uL (150-450); RBC 4.53 m/uL (4.30-5.90); RDW 12.4 % (11.5-15.5); WBC 11.5 k/uL (3.8-10.6)
--- NOTE | 2024-01-28 15:58 | XR ---
EXAMINATION TYPE: XR KUB DATE OF EXAM: 01/28/2024 3:23 PM CLINICAL INDICATION: Male, 38 years old with history of flank pain; H COMPARISON: None. TECHNIQUE: One radiographic view of the abdomen was obtained. FINDINGS: The bowel gas pattern is nonspecific without dilated loops of small or large bowel. . Fecal material and gas are demonstrated throughout the colon and rectum. There is no evidence for organomegaly or pneumoperitoneum. The osseous structures are intact. No ab normal calcifications are present. IMPRESSION: Nonspecific bowel gas pattern without radiographic evidence for acute process.
[2024-01-28 16:12] LABS: ALT 18 U/L (4-49); AST 26 U/L (17-59); African American GFR (CKD) >90 (>60 ml/min/1.73 sqM); Albumin 4.9 g/dL (3.5-5.0); Alkaline Phosphatase 37 U/L (38-126); Anion Gap 6 mmol/L; Blood Urea Nitrogen 14 mg/dL (9-20); Calcium 10.3 mg/dL (8.4-10.2); Carbon Dioxide 30 mmol/L (22-30); Chloride 104 mmol/L (98-107); Glucose 150 mg/dL (74-99); Lipase 41 U/L (23-300); Non-African American GFR(CKD) >90 (>60 ml/min/1.73 sqM); Potassium 4.7 mmol/L (3.5-5.1); Sodium 140 mmol/L (137-145); Total Bilirubin 0.7 mg/dL (0.2-1.3); Total Protein 7.5 g/dL (6.3-8.2)
[2024-01-28 16:31] VITALS: BP 125/77; PULSE 110; TEMP 98.1
== END 2024-01-28 16:32 | disposition home or self-care (01) ==
LOC: EC 13:54
CPT/HCPCS: 36415; 74018; 80053; 81001; 83690; 85025; 99284